=== PATIENT | male | born 1980 | race Caucasian/White ===

== ENCOUNTER 2021-08-31 16:55 | Emergency (ER) | payer SELFPAY ==
[~2021-08-31] VITALS: Ht 170.2 cm; Wt 91.0 kg
[2021-08-31] MEDS ORDERED: IBUPROFEN 800MG TABLET PO ONE (17:15)
[2021-08-31 18:05] VITALS: BP 143/92
== END 2021-08-31 19:26 | disposition home or self-care (01) ==
LOC: ER 16:55
DX: M25.511 Pain in right shoulder (principal); E11.9 Type 2 diabetes mellitus without complications; Z90.49 Acquired absence of other specified parts of digestive tract; V43.52XA Car driver injured in collision with other type car in traffic accident, initial encounter; Y93.89 Activity, other specified; Y92.488 Other paved roadways as the place of occurrence of the external cause
CPT/HCPCS: 73030; 99283

== ENCOUNTER 2022-06-13 14:00 | Emergency (ER) | payer MEDICAID ==
[~2022-06-13] VITALS: Ht 172.7 cm; Wt 113.0 kg
[2022-06-13] MEDS ORDERED: OXYM30SP26 BOTHNSTRLS (17:14)
[2022-06-13 17:49] VITALS: BP 135/67
== END 2022-06-13 17:56 | disposition home or self-care (01) ==
LOC: ER 14:00
DX: R04.0 Epistaxis (principal); R42 Dizziness and giddiness; E11.9 Type 2 diabetes mellitus without complications; Z90.49 Acquired absence of other specified parts of digestive tract
CPT/HCPCS: 99282

== ENCOUNTER 2022-08-15 13:22 | Emergency (ER) | payer MEDICAID ==
[~2022-08-15] VITALS: Ht 177.8 cm; Wt 109.0 kg
[~2022-08-15 13:22] MED LIST: OXYM30SP26 BOTHNSTRLS
[2022-08-15 13:43] VITALS: BP 126/84
[2022-08-15] MEDS ORDERED: TETRACAINE 0.5% OPHTH DROPS 4ML LEFTEYE ONE (18:45)
[2022-08-15] MEDS ORDERED: FLUORESCEIN SODIUM 1MG/STRIP EACHEYE ONE (18:45)
[2022-08-15] MEDS ORDERED: METOCLOPRAMIDE HCL 10MG TABLET PO ONE (18:45)
[2022-08-15] MEDS ORDERED: AMPICILLIN SOD/SULBACTAM NA 3 G in SODIUM CHLORIDE 0.9% 100 ML IV SCH (21:00)
[2022-08-15 21:40] LABS: BASOPHILS % 0.7 % (0.0-2.0); EOSINOPHILS % 13.3 % (0.0-5.0); HEMATOCRIT. 46.7 % (42.0-52.0); LYMPHOCYTES % 27.3 % (20.0-50.0); MEAN CORPUSCULAR HEMOGLOBIN 30.9 pg (28.0-32.0); MEAN CORPUSCULAR VOLUME 90.3 fL (80.0-94.0); MEAN PLATELET VOLUME 11.7 fl (7.4-10.4); MONOCYTES % 4.7 % (2.0-8.0); PLATELET 199 x1000/uL (130-400); RED BLOOD CELL COUNT 5.17 mill/uL (4.7-6.1)
[2022-08-15 21:47] LABS: CHLORIDE 99 mEq/L (98-107)
[2022-08-15 21:50] LABS: INR 0.9; PROTHROMBIN TIME 10.2 sec (9.6-11.0)
== END 2022-08-16 01:00 | disposition left against medical advice (07) ==
LOC: ER 13:22 → CANBEDREQ 08-17 14:57
DX: J01.80 Other acute sinusitis (principal); H05.222 Edema of left orbit; E11.9 Type 2 diabetes mellitus without complications; Z20.822 Contact with and (suspected) exposure to COVID-19; Z90.49 Acquired absence of other specified parts of digestive tract; Z87.81 Personal history of (healed) traumatic fracture; Z87.828 Personal history of other (healed) physical injury and trauma
CPT/HCPCS: 36415; 70450; 70486; 80053; 83880; 85025; 85610; 86850; 86900; 86901; 87426; 96365; 99291; C9803; J0295; J7050; J8597; Z7610